=== PATIENT | female | born 1985 | race Caucasian/White ===

== ENCOUNTER 2017-11-20 13:18 | Observation (INO) | payer BC ==
[~2017-11-20] VITALS: Ht 177.8 cm; Wt 63.6 kg
[2017-11-20 13:41] LABS: COLLECTION METHOD CLEAN CATCH
[2017-11-20 13:45] LABS: HEMATOCRIT 43.2 % (37.0-47.0); HEMOGLOBIN 14.6 g/dl (12.5-16.0); MEAN CELL VOLUME 91 fl (80.0-100.0); MEAN CORPUSCULAR HEMOGLOBIN 31 pg (27.0-31.0); MEAN CORPUSCULAR HGB CONC 34 g/dl (33.0-37.0); PLATELET COUNT 185 K/mm3 (130-400); RED BLOOD COUNT 4.76 M/mm3 (4.10-5.30); REDCELL DISTRIBUTION WIDTH-CV 12.6 % (11.5-14.5)
[2017-11-20 13:48] LABS: PH 6 (5-8); SQUAMOUS EPITHELIAL 0-2 /hpf; URINE APPEARANCE Clear; URINE BACTERIA Rare /hpf; URINE BILIRUBIN Negative (NEGATIVE); URINE BLOOD Negative (NEGATIVE); URINE COLOR Straw; URINE GLUCOSE Negative (NEGATIVE); URINE KETONE 1+ (NEGATIVE); URINE LEUKOCYTE ESTERASE Negative (NEGATIVE); URINE NITRATE Negative (NEGATIVE); URINE PROTEIN(semi-quant) Negative (NEGATIVE); URINE RBC 0-2 /hpf; URINE UROBILINOGEN Negative (NEGATIVE)
[2017-11-20 14:04] LABS: ALBUMIN 4.3 gm/dL (3.5-5.0); BILIRUBIN,TOTAL 2.3 mg/dL (0.0-1.0); C-REACTIVE PROTEIN 8.7 mg/dL (0.0-0.9); CALCIUM 9.4 mg/dL (8.4-10.2); CREATININE, serum 0.66 mg/dL (0.52-1.25); POTASSIUM 3.8 mmol/L (3.4-5.0); TOTAL PROTEIN 7.9 gm/dL (6.4-8.2)
[2017-11-20 14:05] LABS: BAND 48 % (0-10); LYMPHOCYTE 7 % (20.0-51.0); NEUTROPHILS 42 % (42.0-75.2); PLATELET ESTIMATE NORMAL (NORMAL)
[2017-11-20 18:45] VITALS: BP 95/55; PULSE 111; TEMP 98.1
[2017-11-20 19:15] VITALS: BP 80/54; PULSE 109
[2017-11-20 19:30] VITALS: BP 74/54; PULSE 114
[2017-11-20 20:00] VITALS: BP 86/45; PULSE 106
[2017-11-20 20:30] VITALS: BP 83/41; PULSE 110
[2017-11-20 21:30] VITALS: BP 90/46; PULSE 107
[2017-11-21 00:12] VITALS: BP 83/44; PULSE 90; TEMP 98.1
[2017-11-21 04:00] VITALS: BP 80/43; PULSE 80; TEMP 98.1
[2017-11-21 07:22] LABS: MEAN CELL VOLUME 94 fl (80.0-100.0); MEAN CORPUSCULAR HGB CONC 33 g/dl (33.0-37.0); MEAN PLATELET VOLUME 11.2 fl (7.4-10.4); PLATELET COUNT 172 K/mm3 (130-400); RED BLOOD COUNT 3.79 M/mm3 (4.10-5.30); REDCELL DISTRIBUTION WIDTH-CV 13.2 % (11.5-14.5)
[2017-11-21 07:25] LABS: HEMATOCRIT 35.5 % (37.0-47.0); HEMOGLOBIN 11.8 g/dl (12.5-16.0); MEAN CORPUSCULAR HEMOGLOBIN 31 pg (27.0-31.0)
[2017-11-21 08:00] VITALS: BP 92/54; PULSE 90; TEMP 97.8
[2017-11-21 09:05] LABS: BAND 10 % (0-10); LYMPHOCYTE 8 % (20.0-51.0); NEUTROPHILS 82 % (42.0-75.2); PLATELET ESTIMATE NORMAL (NORMAL)
[2017-11-21 14:01] VITALS: BP 79/41; PULSE 103; TEMP 97.7
[2017-11-21 14:40] VITALS: BP 96/55; PULSE 103
[2017-11-21 16:46] VITALS: BP 92/48; PULSE 93; TEMP 98.5
[2017-11-22 03:54] VITALS: BP 98/49; PULSE 90; TEMP 98.5
[2017-11-22 06:35] LABS: BASO # 0.1 (0.0-0.2); BASO % 0.4 % (0.0-2.0); EOS # 0.1 (0.0-0.7); GRAN # 11.9 (1.4-6.5); HEMOGLOBIN 11.2 g/dl (12.5-16.0); LYMPH # 0.9 (1.2-3.4); LYMPH % 6.6 % (20.0-51.0); MEAN CELL VOLUME 93 fl (80.0-100.0); MEAN CORPUSCULAR HEMOGLOBIN 31 pg (27.0-31.0); MEAN CORPUSCULAR HGB CONC 33 g/dl (33.0-37.0); MEAN PLATELET VOLUME 10.8 fl (7.4-10.4); MONO % 7.2 % (1.7-9.3); PLATELET COUNT 167 K/mm3 (130-400); RED BLOOD COUNT 3.63 M/mm3 (4.10-5.30); REDCELL DISTRIBUTION WIDTH-CV 13.3 % (11.5-14.5)
[2017-11-22 06:52] LABS: HEMATOCRIT 33.9 % (37.0-47.0)
[2017-11-22 08:07] VITALS: BP 98/55; PULSE 84; TEMP 98.2
[2017-11-22] MEDS ORDERED: AMOXICILLIN 8751 TAB PO (10:46)
[2017-11-22] MEDS ORDERED: ROXICODONE 55 MG/TAB PO (10:46)
== END 2017-11-22 11:45 | disposition home or self-care (01) ==
LOC: COL.ER 13:18 → JCC 16:34
PROVIDERS: Family Medicine; Surgery
DX: K35.2 Acute appendicitis with generalized peritonitis (principal)
CPT/HCPCS: G0378; J0330; J1100; J1170; J1885; J2370; J2405; J2543; J2704; J2710; J2765; J3010; J7030; J7042; J7050; J7120; Q9967

== ENCOUNTER 2018-09-07 15:15 | Outpatient (RCR) | payer BC ==
[~2018-09-07 15:15] MED LIST: AMOXICILLIN 8751 TAB PO; ROXICODONE 55 MG/TAB PO
== END 2018-09-13 | disposition home or self-care (01) ==
LOC: WSC
DX: M54.16 Radiculopathy, lumbar region (principal)

== ENCOUNTER 2018-09-21 12:45 | Outpatient (RCR) | payer BC | END 2018-12-16 | LOC: WSPT | DX: M54.16 Radiculopathy, lumbar region (principal) ==